=== PATIENT | female | born 1975 | race Caucasian/White ===

== ENCOUNTER 2017-02-04 12:55 | Emergency (ER) | payer OTHER | END 2017-02-04 14:30 | disposition home or self-care (01) | LOC: ER 12:55 | DX: M79.622 Pain in left upper arm (principal); R06.02 Shortness of breath; I00 Rheumatic fever without heart involvement; Z87.442 Personal history of urinary calculi; Z90.710 Acquired absence of both cervix and uterus; Z88.1 Allergy status to other antibiotic agents | CPT/HCPCS: 36415 ==